=== PATIENT | male | born 1980 | race African-American/Black ===

== ENCOUNTER 2018-07-07 22:02 | Emergency (ER) | payer SELFPAY | END 2018-07-07 22:28 | LOC: JD.ED 22:02 | DX: Z53.21 Procedure and treatment not carried out due to patient leaving prior to being seen by health care provider (principal) ==

== ENCOUNTER 2019-03-14 20:30 | Emergency (ER) | payer OTHER ==
--- NOTE | 2019-03-14 21:48 | EDM.PDOC ---
ED HPI GENERAL MEDICAL PROBLEM - General Chief Complaint: Back Pain or Injury Stated Complaint: RIGHT ELBOW LOWER BACK PAIN FELL MONDAY WORSE NOW Time Seen by Provider: 03/14/19 21:38 Source of Information: Reports: Patient History Limitations: Reports: No Limitations - History of Present Illness INITIAL COMMENTS - FREE TEXT/NARRATIVE: Patient is a 39-year-old male who presents with complaints of right elbow and back pain. Patient states on Monday he slipped on the ice and fell landing on his right elbow and right side. Rates the pain to both areas 10 out of 10. States the pain was initially in his lower back but is now also painful in his upper back. Denies any history of chronic back pain. No previous injury to the right elbow or back in the past. He denies any numbness or tingling to his extremities or bowel or bladder dysfunction. Denies any pain in his neck. Back Pain Score (Numeric/FACES): 10 Right Elbow Pain Score (Numeric/FACES): 10 - Related Data Allergies Allergy/AdvReac Type Severity Reaction Status Date / Time No Known Allergies Allergy Verified 05/26/17 12:45 CDT Home Meds: Home Meds Enalapril [Vasotec] 20 mg PO DAILY 01/05/17 [History] Cyclobenzaprine [Flexeril] 10 mg PO TID PRN #10 tab 03/14/19 [Rx] Past Medical History - Past Health History Medical/Surgical History: Denies Medical/Surgical History Cardiovascular History: Reports: Hypertension Genitourinary History: Reports: Other (See Below) Other Genitourinary History: Kidney Problem Social & Family History - Family History Family Medical History: Noncontributory - Tobacco Use Smoking Status *Q: Never Smoker - Caffeine Use Caffeine Use: Reports: Coffee, Energy Drinks, Tea - Recreational Drug Use Recreational Drug Use: No ED ROS GENERAL - Review of Systems Review Of Systems: Comprehensive ROS is negative, except as noted in HPI. ED EXAM,LOWER BACK PAIN/INJURY - Physical Exam Exam: See Below Exam Limited By: No Limitations General Appearance: Alert, WD/WN, No Apparent Distress Respiratory/Chest: No Respiratory Distress, Lungs Clear, Normal Breath Sounds, No Accessory Muscle Use, Chest Non-Tender Cardiovascular: Normal Peripheral Pulses, Regular Rate, Rhythm, No Edema, No Gallop, No JVD, No Murmur, No Rub Back Exam: Normal Inspection, Paraspinal Tenderness (T4-L5), Vertebral Tenderness (T4-L5) Extremities: Other (Abrasion and mild edema to the right distal elbow.) Neurological: Alert, Normal Mood/Affect, Normal Dorsiflexion, CN II-XII Intact, Normal Plantar Flexion, Normal Gait, Normal Reflexes, No Motor/Sensory Deficits , Oriented x 3 Psychiatric: Normal Affect, Normal Mood Skin Exam: Warm, Dry, Intact, Normal Color, No Rash Course - Vital Signs Last Recorded V/S: Last Vital Signs Temp 98.9 F 03/14/19 20:45 Pulse 84 03/14/19 20:45 Resp 20 03/14/19 20:45 BP 138/95 H 03/14/19 20:45 Pulse Ox 97 03/14/19 20:45 - Orders/Labs/Meds Orders: Active Orders 24 hr Category Date Time Status Elbow Min 3V Rt [CR] Stat Exams 03/14/19 21:48 Taken Lumbar Spine 2 or 3V [CR] Stat Exams 03/14/19 21:48 Taken Thoracic Spine 2V [CR] Stat Exams 03/14/19 21:48 Taken Meds: Medications Discontinued Medications Generic Name Dose Route Start Last Admin Trade Name Freq PRN Reason Stop Dose Admin Cyclobenzaprine HCl 10 mg 03/14/19 22:33 Flexeril PO 03/14/19 22:34 ONETIME ONE Ketorolac Tromethamine 60 mg 03/14/19 22:33 Toradol IM 03/14/19 22:34 ONETIME ONE - Re-Assessments/Exams Free Text/Narrative Re-Assessment/Exam: There were no fractures found to the right elbow or spine. Discussed treatment options with the patient. Initial plan was to go with Naprosyn and Flexeril for treatment, however it was found that patient has had chronic kidney problems in the past. He states his kidney function is currently normal, however he would like to not use NSAIDs if possible. I did cancel the prescription that was sent to clinic pharmacy for Naprosyn. 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 He received his first dose of Flexeril in the emergency department tonight. He stated that he will have his roommate come pick him up so he is not driving home. Discharge instructions as documented. Departure - Departure Time of Disposition: 22:34 Disposition: Home, Self-Care 01 Condition: Fair Clinical Impression: Back strain Qualifiers: Encounter type: initial encounter Qualified Code(s): S39.012A - Strain of muscle, fascia and tendon of lower back, initial encounter Elbow contusion Qualifiers: Encounter type: initial encounter Laterality: right Qualified Code(s): S50.01XA - Contusion of right elbow, initial encounter - Discharge Information *PRESCRIPTION DRUG MONITORING PROGRAM REVIEWED*: No *COPY OF PRESCRIPTION DRUG MONITORING REPORT IN PATIENT ROMERO: No Prescriptions: Cyclobenzaprine [Flexeril] 10 mg PO TID PRN #10 tab PRN Reason: Muscle Spasm Instructions: Muscle Strain, [id number], Elbow Contusion Referrals: Chu Mckee MD [Primary Care Provider] - Forms: ED Department Discharge Additional Instructions: You were seen in the emergency department today for right elbow pain as well as back pain after falling on the ice on Monday. X-rays were done of your spine as well as your right elbow and there were no acute fractures shown. You did receive a dose of Flexeril, which is a muscle relaxer, in the emergency department. A prescription for this is also been sent to clinic pharmacy. Since you do have a history of kidney problems, I recommend that she did not take NSAIDs (ibuprofen, naproxen) to treat this pain. You may use Tylenol as needed for pain. Heat or ice to the affected areas may also be beneficial. If you experience any worsening symptoms, please not hesitate to return to the emergency department. Sepsis Event Note - Evaluation Sepsis Screening Result: No Definite Risk - Focused Exam Vital Signs: Vital Signs Temp Pulse Resp BP Pulse Ox 03/14/19 20:45 98.9 F 84 20 138/95 H 97 Date Exam was Performed: 03/14/19 Time Exam was Performed: 22:46 - My Orders Last 24 Hours: My Active Orders 03/14/19 21:48 Elbow Min 3V Rt [CR] Stat Lumbar Spine 2 or 3V [CR] Stat Thoracic Spine 2V [CR] Stat - Assessment/Plan Last 24 Hours: My Active Orders 03/14/19 21:48 Elbow Min 3V Rt [CR] Stat Lumbar Spine 2 or 3V [CR] Stat Thoracic Spine 2V [CR] Stat
[2019-03-14] MEDS ORDERED: Cyclobenzaprine 10 MG Tab PO ONE (22:33)
[2019-03-14] MEDS ORDERED: Ketorolac 60 MG/2 ML SDV IM ONE (22:33)
--- NOTE | 2019-03-15 08:33 | CR ---
Right elbow: Four views of the right elbow were obtained. Comparison: No previous study. Olecranon spur is noted at the attachment of the triceps tendon. Joint spaces within the wrist are maintained. No acute fracture or other abnormality is seen. Impression: 1. Olecranon spur. 2. Right elbow study is otherwise unremarkable. Diagnostic code #2 This report was dictated in [place] Standard Time
--- NOTE | 2019-03-15 08:33 | CR ---
Thoracic spine: AP and lateral views of the thoracic spine were obtained. Comparison: No previous study. Scoliosis is noted within the spine. Vertebral body heights and disc spaces are preserved. Pedicles are intact. No subluxation or fracture is seen. Minimal scattered endplate osteophytes are noted most prominent laterally on the concave side of the scoliosis. Impression: 1. Scoliosis and minimal degenerative change. 2. Nothing acute is appreciated on two-view thoracic spine study. Diagnostic code #2 This report was dictated in [place] Standard Time
--- NOTE | 2019-03-15 08:33 | CR ---
Lumbar spine: AP and lateral views of the lumbar spine were obtained. Comparison: No previous study. Scoliosis is noted. Vertebral body heights and disc spaces are maintained. Pedicles are intact. No subluxation or fracture seen. Transitional segment noted at the lumbosacral junction. Impression: 1. Scoliosis. Transitional segment. 2. Two-view lumbar spine study is otherwise unremarkable. Diagnostic code #1 This report was dictated in [place] Standard Time
== END 2019-03-14 22:50 | disposition home or self-care (01) ==
LOC: JD.ED 20:30
DX: S39.012A Strain of muscle, fascia and tendon of lower back, initial encounter (principal); S50.01XA Contusion of right elbow, initial encounter; I10 Essential (primary) hypertension; Z79.899 Other long term (current) drug therapy; W00.0XXA Fall on same level due to ice and snow, initial encounter
CPT/HCPCS: 72070; 72100; 73080; 99283; A9270